=== PATIENT | female | born 1960 | race Caucasian/White ===

== ENCOUNTER 2022-02-21 22:34 | Inpatient (IN) | payer OTHER ==
[~2022-02-21] VITALS: Ht 167.6 cm; Wt 71.7 kg
[2022-02-21 22:34] VITALS: BP 100/60
--- NOTE | 2022-02-21 22:35 | NUR ---
PT BROUGHT TO BED 4 VIA [facility]
[2022-02-21] MEDS ORDERED: NACL 0.9% 1,000 ML IV ONE (22:45)
--- NOTE | 2022-02-21 22:45 | NUR ---
ER Physician at bedside assessing patient.
--- NOTE | 2022-02-21 23:00 | NUR ---
Patient verbally informed ER physician she "had dialysis 5 years ago for 6 months, and no longer receiving dialysis." ER physician verbalized understanding.
[2022-02-21 23:10] LABS: BASOPHILS # (AUTO) 0.1 K/uL (0.00-0.22); BASOPHILS % (AUTO) 0.4 % (0.0-2.0); EOSINOPHILS # (AUTO) 0.1 K/uL (0-0.4); EOSINOPHILS % (AUTO) 0.5 % (0.0-4.0); HEMATOCRIT 57.2 % (36-48); HEMOGLOBIN 19.5 g/dL (12.0-16.0); LYMPHOCYTES # (AUTO) 1.2 K/uL (2.5-16.5); LYMPHOCYTES % (AUTO) 5.5 % (20.5-51.1); MEAN CORPUSCULAR HEMOGLOBIN 31 pg (27-31); MEAN CORPUSCULAR HGB CONC 34 g/dL (33-37); MEAN CORPUSCULAR VOLUME 90.8 fL (80-94); MONOCYTES # (AUTO) 0.7 K/uL (0.8-1.0); MONOCYTES % (AUTO) 3.1 % (1.7-9.3); NEUTROPHILS # (AUTO) 19.8 K/uL (1.8-7.7); NEUTROPHILS % (AUTO) 90.5 % (42.2-75.2); PLATELET COUNT (AUTO) 387 K/uL (140-450); RED CELL DISTRIBUTION WIDTH 13.4 % (11.6-13.7); WHITE BLOOD COUNT (AUTO) 21.8 K/uL (4.8-10.8)
[2022-02-22] LABS: ALBUMIN 4.7 g/dL (3.4-5.0); ANION GAP 37.9 (8-16); ASPARTATE AMINOTRANSFERASE 61 U/L (15-37); CARBON DIOXIDE 18.7 mmol/L (21-32); CHLORIDE 72 mmol/L (98-107); GFR ARICAN-AMERICAN 6 mL/min (>90); GLUCOSE 312 mg/dL (74-106); SALICYLATE 4.3 mg/dL (2.8-20.0); SODIUM SERUM 126 mmol/L (136-145); TOTAL BILIRUBIN 3.3 mg/dL (0.0-1.0)
--- NOTE | 2022-02-22 | NUR ---
NO S/SX OF ACUTE DISTRESS NOTED Addendum: 02/22/22 at 2038 by Ann-Marie Benites RN THE ABOVE NURSE'S NOTE IS TIME ERROR ENTRY INSTEAD OF 1200 - REMILR
[2022-02-22 00:06] LABS: POTASSIUM 2.6 mmol/L (3.5-5.1); UREA NITROGEN, BLOOD 63 mg/dL (7-18)
[2022-02-22 00:07] LABS: ACETAMINOPHEN < 0.5 ug/ml (10-30); CREATININE 8.4 mg/dL (0.6-1.3)
--- NOTE | 2022-02-22 00:30 | NUR ---
Patient lying in bed, no s/s of distress, chest rise and fall symmetrical.
--- NOTE | 2022-02-22 01:00 | NUR ---
Patient lying in bed, no s/s of distress, chest rise and fall symmetrical.
[2022-02-22] MEDS ORDERED: ONDANSETRON 4 MG/2 ML VIAL IVP ONE (01:50)
[2022-02-22] MEDS ORDERED: POTASSIUM CHLORIDE 10 MEQ TABER PO ONE (01:50)
[2022-02-22] MEDS ORDERED: MORPHINE SULFATE 4 MG/ML SYR IVP ONE ×2 (01:50→04:25)
--- NOTE | 2022-02-22 02:05 | NUR ---
Patient lying in bed, no s/s of distress, chest rise and fall symmetrical.
--- NOTE | 2022-02-22 03:01 | NUR ---
Patient lying in bed, no s/s of distress, chest rise and fall symmetrical.
--- NOTE | 2022-02-22 04:12 | NUR ---
Patient lying in bed, no s/s of distress, chest rise and fall symmetrical.
--- NOTE | 2022-02-22 04:33 | NUR ---
4mg morphine package damaged, medication wasted in pixis, with nurse co-signer. Pulled another 4mg morphine from pixis.
--- NOTE | 2022-02-22 05:33 | NUR ---
Patient will be admitted to care of TELEMETRY NURSE MEGHAN PATEL. Admited to TELEMETRY. Will go to room 106A. Belongings list completed. Report to TELEMETRY NURSE MEGHAN PATEL. TELEMETRY NURSE MEGHAN PATEL verbalized understanding of report, no further questions. Patient taken to Telemetry floor, on monitor, and safely transferred to Bed 106A. Patient A/Ox4, no s/s of distress, skin intact, patient stated "pain is 2/10, tolerable."
--- NOTE | 2022-02-22 05:45 | NUR ---
PATIENT WAS BROUGHT TO MST UNIT VIA GURNEY WITH CC: ABDOMINAL PAIN. DX: ACUTE RENAL FAILURE, HYPOKALEMIA, RHABDOMYOLYSIS. AMBULATORY. ALL SAFETY MEASURES ARE IN PLACE. NO SOB NOTED. RESPIRATION EVEN UNLABORED. ON TELE MONITOR. MRSA SCREENING DONE. CALL LIGHT WITHIN REACH. WILL ENDORSE TO THE NEXT SHIFT FOR CONTINUITY OF CARE.
[2022-02-22] MEDS ORDERED: ACETAMINOPHEN 325 MG TAB PO PRN (07:50)
[2022-02-22] MEDS ORDERED: ZOLPIDEM 5 MG TAB PO PRN (07:50)
[2022-02-22] MEDS ORDERED: VANCOMYCIN PER PHARMACY MC PRN (07:50)
[2022-02-22] MEDS ORDERED: guaiFENesin DM 200/20 MG-10 ML 10 ML UDC PO PRN (07:50)
[2022-02-22] MEDS ORDERED: DOCUSATE SODIUM 100 MG GELCAP PO PRN (07:50)
[2022-02-22 08:00] VITALS: BP_SYST 108; BP_SYST 142; BP_DIAS 84; BP_DIAS 94
--- NOTE | 2022-02-22 08:20 | NUR ---
PER DR. ABRAHAM - INSERT MACEDO CATH - FOR URINE COLLECTION FOR SPECIMEN . Addendum: 02/22/22 at 2041 by Ann-Marie Benites RN ONLY LESS THAN 5 CC DRAIN URINE OUTPUT WHEN I INSERTED THE MACEDO CATH - PROCEDURE TOLERATED WELL BY THE PT . , MINI HD 5 YRS AGO
[2022-02-22 08:46] LABS: HEMATOCRIT 51.7 % (36-48); MEAN CORPUSCULAR HEMOGLOBIN 31 pg (27-31); MEAN CORPUSCULAR HGB CONC 35 g/dL (33-37); MEAN CORPUSCULAR VOLUME 88.7 fL (80-94); PLATELET COUNT (AUTO) 352 K/uL (140-450); RED BLOOD CELL COUNT(AUTO) 5.83 MIL/uL (4.20-5.40); RED CELL DISTRIBUTION WIDTH 13.3 % (11.6-13.7)
[2022-02-22 09:03] LABS: ANION GAP 31.1 (8-16); CARBON DIOXIDE 20.8 mmol/L (21-32)
[2022-02-22 09:07] LABS: BILIRUBIN,DIRECT 0.3 mg/dL (0.0-0.3)
[2022-02-22 09:09] LABS: PROTHROMBIN TIME 11.4 secs (10.8-13.4)
[2022-02-22 09:16] LABS: CREATININE 8.6 mg/dL (0.6-1.3); POTASSIUM 2.9 mmol/L (3.5-5.1)
--- NOTE | 2022-02-22 09:23 | NUR ---
PATIENT HAS BEEN SCREENED AND CATEGORIZED MODERATE NUTRITION RISK. PATIENT WILL BE SEEN WITHIN 3-5 DAYS OF ADMISSION. 02/25/22-02/27/22 REVIEWED BY NITZA MCDANIEL RD
[2022-02-22 09:25] LABS: WHITE BLOOD COUNT (AUTO) 25.4 K/uL (4.8-10.8)
[2022-02-22] MEDS ORDERED: NACL 0.9% 2,000 ML IV SCH (09:25)
[2022-02-22 09:26] LABS: EOSINOPHILS % (MANUAL) 5 % (0-4); LYMPHOCYTES % (MANUAL) 28 % (20-46); MONOCYTES % (MANUAL) 7 % (5-12)
[2022-02-22 09:27] LABS: CHOL/HDL RATIO 6.1 (1-4.5); FREE T4 (FREE THYROXINE) 1.05 ng/dL (0.76-1.46); MAGNESIUM 3.4 mg/dL (1.8-2.4); THYROID STIMULATING HORMONE 2.64 uIU/mL (0.34-3.74)
--- NOTE | 2022-02-22 09:39 | NUR ---
C/O PAIN - WILL MEDICATE.
--- NOTE | 2022-02-22 09:40 | NUR ---
during rounds , dr. kruse aware pt's latest potassium is low - he agree to give k dur now .
[2022-02-22 09:51] LABS: PHOSPHORUS 15.4 mg/dL (2.5-4.9)
[2022-02-22] MEDS: HYDROcodone/APAP 7.5/325 MG 1 TAB PO PRN ×2 (09:52→14:19)
[2022-02-22] MEDS: PANTOPRAZOLE 40 MG TABEC PO SCH (09:52)
[2022-02-22] MEDS: POTASSIUM CHLORIDE 10 MEQ TABER PO PRN (10:31)
--- NOTE | 2022-02-22 11:08 | NUR ---
DC PLANNING NIURKA ATTEMPTED TO MEET WITH PATIENT AT BEDSIDE TO COMPLETE ASSESSMENT, HOWEVER PATIENT DECLINED TO PARTICIPATE , SHE IS IN TOO MUCH PAIN. SW TO FOLLOW UP 02/23 Addendum: 02/24/22 at 0826 by Jacqueline Hernández LATE ENTRY- ATTEMPT MADE AT 1:55PM ON 02/23 NIURKA SECOND ATTEMPT TO MEET WITH PATIENT AT BEDSIDE TO COMPLETE ASSESSMENT, HOWEVER, PATIENT CONTINUES TO COMPLAIN OF PAIN AND DECLINES TO PARTICIPATE IN ASSESSMENT. SW WILL CONTINUE TO ATTEMPT TO MEET WITH PATIENT. Addendum: 02/24/22 at 1359 by Jacqueline Hernández SW MET WITH PATIENT AT BEDSIDE TO COMPLETE ASSESSMENT. PATIENT REPORTS RESIDING WITH A ROOMMATE AT THE ADDRESS LISTED ON FILE FOR THE LAST 14 YRS. PATIENT IDENTIFIED EMERGENCY CONTACT BRITNEY CHARLES (ROOMMATE) [phone]. PATIENT DENIES MEETING WITH PCP CONSISTENTLY; LAST VISIT REPORTED TO THREE YEARS AGO. PATIENT DENIES CURRENTLY TAKING MEDICATION AND DENIES BARRIERS IN ACCESSING NEEDED MEDICATIONS. PATIENT REPORTS PICKING UP RX FROM [facility] [address] IN [place], WHEN NEEDED. PATIENT REPORTS BEING INDEPENDENT AND DENIES USE OF DME . PATIENT REPORTS IHHS HOURS AND REPORTS HER SON IHSS CAREGIVER, HOWEVER REPORTS SHE HAS NOT SEEN HER SON IN THREE YEARS, PATIENT REQUESTING IHSS RESOURCES. PATIENT REPORTS RECEIVING DIALYSIS 5-6 YRS AGO FOR 2-3 MONTHS, PT UNABLE TO RECALL NAME OF DIALYSIS CENTER. PT DENIES CURRENTLY RECIEVING DIALYSIS TX. JAM REPORTS INCOME SOURCE SSDI. PT DENIES MENTAL HEALTH HX. PATIENT REPORTS SUBSTANCE USE HX, PRIMARILY METH. PATIENT REPORTS BEING SOBER FOR 5-6 MONTHS DESPITE TESTING POSITIVE FOR OPIATES, COCAINE AND CANNABIS AT ADMISSIONS. SW PROVIDED PATIENT WITH PSYCHOEDUCATION ON SHELTER MONITOR SUBSTANCE USE.PATIENT RECEPTIVE AND ACCEPTED SUBSTANCE USE RESOURCES. SW INQUIRED ON ADDITIONAL RESOURCES NEEDED, PATIENT REQUESTING IHSS RESOURCES AND HOMELESS RESOURCES SHE REPORTS NOT WANTING TO RETURN TO HOME. SW ENCOURAGED PATIENT TO BEGIN CALLING HOMELESS RESIDENTIAL OFTEN HAVE ASSESSMENTS THAT MUST BE COMPLETED. PATIENT IN UNDERSTANDING. Addendum: 02/25/22 at 1152 by Jacqueline Hernández SW PROVIDED PATIENT WITH IHSS, HOMELESS, EMERGENCY ASSISTANCE, LOW COST HOUSING, MENTAL HEALTH, SUBSTANCE USE AND LOW COST HOUSING RESOURCES. PATIENT ACCEPTED. PATIENT REQUESTING SW TO CALL CODE ENFORCEMENT HOUSING IS REPORTED TO BE UNINHABITABLE. SW ENCOURAGED PATIENT TO UTILIZE HOMELESS RESOURCES TO IDENTIFY A RESIDENTIAL AND COMPLETE PHONE INTERVIEWS AND ADDITIONAL REQUIREMENTS NEEDED. NIURKA OUTREACHED TO [place] [facility]IANCE AT [phone] FOR CONSULTATION. NIURKA LEFT MESSAGE REQUESTING A RETURN PHONE CALL. NIURKA PROVIDED PATIENT WITH CODE COMPLIANCE PHONE NUMBER AND ENCOURAGED PATIENT TO CALL TO FILE COMPLAINT. Addendum: 02/25/22 at 1339 by Jacqueline VAZQUEZ MET WITH PATIENT AT BEDSIDE. PATIENT MADE AWARE OF DC ORDERS. PATIENT REFUSING TO RETURN HOME AND IS REFUSING TO MAKE ARRANGEMENTS FOR ALTERNATIVE HOUSING. PATIENT REQUESTED SW CALL EMERGENCY CONTACT, BRITNEY CHARLES FOR PATIENTS DAUGHTERS PHONE NUMBER. NIURKA ATTEMPTED TO CONTACT EMERGENCY CONTACT, HOWEVER, UNSUCCESSFUL. LEFT MESSAGE REQUESTING A RETURN PHONE CALL.
[2022-02-22 12:00] VITALS: BP 102/80
[2022-02-22] MEDS ORDERED: VANCOMYCIN 1,000 MG in DEXTROSE 5% 250 ML IV SCH (13:30)
--- NOTE | 2022-02-22 14:15 | NUR ---
BP 122/75 , C/O PAIN WILL MEDICATE.
[2022-02-22] MEDS: NACL 0.9% 1,000 ML IV SCH ×3 (14:20→20:20)
[2022-02-22] MEDS: PIPERACILLIN/TAZOBACTAM 2.25 GM in DEXTROSE 5% 50 ML IV SCH ×3 (14:40→23:02)
[2022-02-22 16:00] VITALS: BP 130/88
[2022-02-22] MEDS ORDERED: POTASSIUM CHLORIDE 10 MEQ TABER PO SCH (16:00)
[2022-02-22] MEDS: LACTULOSE 20 GM/30 ML UDC PO SCH (17:01)
--- NOTE | 2022-02-22 18:01 | NUR ---
P.T. NOTES P.T. EVAL INITIATED; REFER TO EVAL FOR DETAILS.
--- NOTE | 2022-02-22 19:20 | NUR ---
HAS BM - NORMAL CONSISTENTCY
--- NOTE | 2022-02-22 19:35 | NUR ---
ENDORSED - PT - STABLE - I ENDORSED TO JORGE CHRISTIANSON - SHE HAVE TO FF UP DR. LEIGH GARY ORDERS REGARDING PT IS STILL NO URINE OUTPUT FROM 2 DAYS TILL NOW - JORGE CHRISTIANSON VERBALIZES UNDERSTANDING
--- NOTE | 2022-02-22 19:36 | NUR ---
RECEIVED REPORT FROM DAY SHIFT NURSE PHYLLIS. PATIENT AAOX4 ON ROOM AIR. NO SOB NOTED. BREATHING NORMAL NON LABORED. IVF NS INFUSING AT 120 MLS/HR ON THE LAC 20 GAUGE. MACEDO CATHETER IN PLACE WITH SCANTY URINE IN THE TUBING. NO COMPLAINTS OF PAIN AT THIS TIME. SAFETY MEASURES IN PLACE. CALL LIGHT WITHIN REACH.
[2022-02-22 20:00] VITALS: BP 112/61
--- NOTE | 2022-02-22 20:18 | NUR ---
NOTIFIED DR. ABRAHAM D/T PATIENT NO URINE OUTPUT WITH ORDERS NOTED, CARRIED OUT. IVF RATE DECREASED TO 70 MLS/HR. CONSULT WITH DR. MCALLISTER. PT. IS RESTING COMFORTABLY IN BED.
[2022-02-22] MEDS: SENNA 8.6 MG TAB PO SCH (23:02)
--- NOTE | 2022-02-22 23:10 | NUR ---
PATIENT WAS ABLE TO URINATE. FOUND UNDER PADS WET MODERATE IN AMOUNT. NO COMPLAINTS OF PAIN. CALL LIGHT WITHIN REACH.
[2022-02-23] VITALS: BP 115/63
[2022-02-23 04:00] VITALS: BP 110/60
--- NOTE | 2022-02-23 04:20 | NUR ---
PATIENT SLEEPING WITH SYMMETRICAL RISE AND FALL OF THE CHEST. SAFETY MEASURES IN PLACE. CALL LIGHT WITHIN REACH.
[2022-02-23] MEDS: PIPERACILLIN/TAZOBACTAM 2.25 GM in DEXTROSE 5% 50 ML IV SCH ×3 (04:26→21:29)
[2022-02-23 06:15] LABS: APPEARANCE,URINE CLOUDY (CLEAR); BILIRUBIN,URINE NEGATIVE (NEGATIVE); BLOOD, URINE 3+ (NEGATIVE); COLOR,URINE DARK YELLOW (YELLOW); LEUKOCYTE ESTERASE ,URINE TRACE (NEGATIVE); NITRITE, URINE NEGATIVE (NEGATIVE); PH,URINE 5.5 (5.0-9.0); UGLUCOSE NEGATIVE (NEGATIVE)
[2022-02-23 06:56] LABS: RBC,URINE 20-50 /HPF (0-5)
[2022-02-23 06:58] LABS: BARBITURATE, URINE NEGATIVE ng/ml (NEG <=200); BENZODIAZEPINE, URINE NEGATIVE ng/mL (NEG <=200); CANNABINOID, URINE POSITIVE ng/mL (NEG <=50)
[2022-02-23 06:59] LABS: COCAINE, URINE NEGATIVE ng/mL (NEG <=300); OPIATE, URINE POSITIVE ng/mL (NEG <=2000); PHENCYCLIDINE SCREEN,URINE NEGATIVE ng/mL (NEG <=25)
--- NOTE | 2022-02-23 07:28 | NUR ---
PATIENT STABLE. ENDORSED TO DAY SHIFT NURSE FOR CONTINUITY OF CARE.
--- NOTE | 2022-02-23 07:30 | NUR ---
RECEIVED REPORT FROM NIGHTSHIFT NURSE. PT A/O X3. ABLE TO MAKE NEEDS KNOWN. NO SOB OR RESPIRATORY DISTRESS. RR EVEN & UNLABORED. ON RA. AFEBRILE. PT DENIES PAIN. CARDIAC DIET. ON TELE, SR. NS @ 70 ML/HR ON LAC #20. MACEDO VIA GRAVITY. NEEDS ALL MET. ALL SAFETY MEASURES IN PLACE.
[2022-02-23 07:54] LABS: HEMATOCRIT 41.3 % (36-48); HEMOGLOBIN 14.4 g/dL (12.0-16.0); LYMPHOCYTES # (AUTO) 0.6 K/uL (2.5-16.5); MEAN CORPUSCULAR HEMOGLOBIN 31 pg (27-31); MEAN CORPUSCULAR HGB CONC 35 g/dL (33-37); MEAN CORPUSCULAR VOLUME 89.2 fL (80-94); MONOCYTES # (AUTO) 1.2 K/uL (0.8-1.0); MONOCYTES % (AUTO) 6.5 % (1.7-9.3); NEUTROPHILS # (AUTO) 17.3 K/uL (1.8-7.7); NEUTROPHILS % (AUTO) 90.5 % (42.2-75.2); PLATELET COUNT (AUTO) 205 K/uL (140-450); RED BLOOD CELL COUNT(AUTO) 4.63 MIL/uL (4.20-5.40); RED CELL DISTRIBUTION WIDTH 13.3 % (11.6-13.7); WHITE BLOOD COUNT (AUTO) 19.1 K/uL (4.8-10.8)
[2022-02-23 08:00] VITALS: BP 128/83
[2022-02-23 08:25] LABS: ALBUMIN 2.8 g/dL (3.4-5.0); ANION GAP 22.1 (8-16); CARBON DIOXIDE 20.3 mmol/L (21-32); POTASSIUM 4.4 mmol/L (3.5-5.1); TOTAL BILIRUBIN 1.7 mg/dL (0.0-1.0)
[2022-02-23 08:31] LABS: CREATININE 6.7 mg/dL (0.6-1.3)
[2022-02-23] MEDS: PANTOPRAZOLE 40 MG TABEC PO SCH (09:27)
[2022-02-23] MEDS: LACTULOSE 20 GM/30 ML UDC PO SCH ×3 (09:27→16:35)
[2022-02-23] MEDS: SENNA 8.6 MG TAB PO SCH ×2 (09:27→21:29)
[2022-02-23] MEDS: NACL 0.9% 1,000 ML IV SCH ×2 (09:29→14:29)
--- NOTE | 2022-02-23 11:30 | NUR ---
WHEN ASKED IF FAMILY MEMBERS CALL COULD UPDATE BE GIVEN AND PT STATES, "YES", HOWEVER STATES, "BUT I DON'T WANT TO TALK TO THEM". PT'S NEIGHBOR CALLED AND NO INFORMATION WAS GIVEN REGARDING THE PT. VERBALIZED TO PT AND PT STATES, "OKAY GOOD".
[2022-02-23 12:00] VITALS: BP 142/87
--- NOTE | 2022-02-23 13:26 | NUR ---
PT REFUSED SCHEDULED LACTULOSE MEDICATION. MEDICATION EDUCATION PROVIDED, HOWEVER, PT STILL REFUSES. NEEDS ALL MET. ENCOURAGE PT TO USE CALL LIGHT FOR ASSISTANCE. ALL SAFETY MEASURES IN PLACE.
[2022-02-23 16:00] VITALS: BP 118/78
--- NOTE | 2022-02-23 16:52 | NUR ---
P.T. NOTES D/C FROM P.T. AFTER TX, ENDORSED TO NURSING; REFER TO DC SUMMARY FOR DETAILS.
[2022-02-23] MEDS: ONDANSETRON 4 MG/2 ML VIAL IM/IVP PRN (17:03)
--- NOTE | 2022-02-23 17:10 | NUR ---
PT C/O NAUSEA. PRN ZOFRAN GIVEN. ORAL FLUIDS PROVIDED. NO SOB NOTED. ON RA. IVF INFUSING. 350 ML URINE OUTPUT VIA MACEDO. NEEDS ALL MET. ALL SAFETY MEASURES IN PLACE.
--- NOTE | 2022-02-23 17:30 | NUR ---
PT MOANING AND STATES, ABDOMINAL "CRAMPING" 03/28. ASSISTED PT TO TOILET. PT WITH LARGE BM. PT REQUESTING PAIN MEDICATION. SEE EMAR FOR PRN MORPHINE ADMINISTRATION. EXPLAINED TO USE THE BATHROOM CALL LIGHT FOR ASSISTANCE AFTER SHE IS DONE.
[2022-02-23] MEDS: MORPHINE SULFATE 2 MG/ML SYR IVP PRN (17:38)
--- NOTE | 2022-02-23 17:40 | NUR ---
ASSISTED PT BACK TO BED. GOWN AND LINENS CHANGED BY SALES ACCOUNT EXECUTIVE. ENCOURAGE USE OF CALL LIGHT FOR ASSISTANCE. ALL NEEDS MET. ALL SAFETY MEASURES IN PLACE.
--- NOTE | 2022-02-23 18:29 | NUR ---
PT ASLEEP. CHEST RISING AND FALLING. NS @ 125 ML/HR. MACEDO VIA GRAVITY. NEEDS ALL MET. ALL SAFETY MEASURES IN PLACE.
[2022-02-23 18:41] LABS: CHLORIDE,URINE RANDOM 40 mmol/L (110-250); CREATININE,URINE RANDOM 100 mg/dL (30-125); URINE SODIUM, RANDOM 41 mmol/l (40-220)
--- NOTE | 2022-02-23 19:23 | NUR ---
REPORT GIVEN TO NIGHTSHIFT NURSEISMA FOR CONTINUITY OF CARE.
[2022-02-23 20:00] VITALS: BP 133/72
[2022-02-24] VITALS: BP 130/70
[2022-02-24] MEDS: NACL 0.9% 1,000 ML IV SCH ×4 (00:35→23:25)
[2022-02-24] MEDS: ONDANSETRON 4 MG/2 ML VIAL IM/IVP PRN ×3 (00:36→13:33)
[2022-02-24] MEDS: MORPHINE SULFATE 2 MG/ML SYR IVP PRN ×3 (00:38→23:27)
--- NOTE | 2022-02-24 01:40 | NUR ---
PATIENT AWAKE CRYING C/O OF STOMACH PAIN WANTS MORPHINE BUT NOT TIME DUE AT 0030 MEDICATED AT 0035 AND HUNG NS AT 125 HOUR. PATIENT WITH NO SIGNS OF ACUTE DISTRESS.
[2022-02-24 04:00] VITALS: BP 128/69
[2022-02-24] MEDS: PIPERACILLIN/TAZOBACTAM 2.25 GM in DEXTROSE 5% 50 ML IV SCH ×3 (05:00→21:00)
[2022-02-24 07:16] LABS: BASOPHILS % (AUTO) 0.3 % (0.0-2.0); EOSINOPHILS # (AUTO) 0.1 K/uL (0-0.4); EOSINOPHILS % (AUTO) 0.4 % (0.0-4.0); HEMATOCRIT 35.1 % (36-48); HEMOGLOBIN 11.9 g/dL (12.0-16.0); LYMPHOCYTES # (AUTO) 0.7 K/uL (2.5-16.5); LYMPHOCYTES % (AUTO) 5.5 % (20.5-51.1); MEAN CORPUSCULAR HEMOGLOBIN 31 pg (27-31); MEAN CORPUSCULAR HGB CONC 34 g/dL (33-37); MEAN CORPUSCULAR VOLUME 90.9 fL (80-94); MONOCYTES # (AUTO) 0.9 K/uL (0.8-1.0); MONOCYTES % (AUTO) 7.1 % (1.7-9.3); NEUTROPHILS # (AUTO) 11.2 K/uL (1.8-7.7); NEUTROPHILS % (AUTO) 86.7 % (42.2-75.2); PLATELET COUNT (AUTO) 164 K/uL (140-450); RED BLOOD CELL COUNT(AUTO) 3.86 MIL/uL (4.20-5.40); RED CELL DISTRIBUTION WIDTH 13.1 % (11.6-13.7); WHITE BLOOD COUNT (AUTO) 12.9 K/uL (4.8-10.8)
--- NOTE | 2022-02-24 07:30 | NUR ---
RECEIVED REPORT FROM NIGHTSHIFT NURSE. PT A/O X3. NO SOB OR RESPIRATORY DISTRESS. ON RA. NS @ 125 ML/HR. ON CARDIAC DIET. MACEDO VIA GRAVITY. ALL SAFETY MEASURES IN PLACE.
[2022-02-24 07:52] LABS: ALBUMIN 2.3 g/dL (3.4-5.0); ANION GAP 15.8 (8-16); CARBON DIOXIDE 21.8 mmol/L (21-32); CREATININE 3.4 mg/dL (0.6-1.3); POTASSIUM 3.6 mmol/L (3.5-5.1); TOTAL BILIRUBIN 1.1 mg/dL (0.0-1.0)
[2022-02-24 08:00] VITALS: BP 137/80
[2022-02-24] MEDS: PANTOPRAZOLE 40 MG TABEC PO SCH (08:41)
[2022-02-24] MEDS: LACTULOSE 20 GM/30 ML UDC PO SCH ×3 (08:53→16:21)
[2022-02-24] MEDS: SENNA 8.6 MG TAB PO SCH ×2 (08:53→21:00)
[2022-02-24] MEDS ORDERED: VANCOMYCIN 500 MG in DEXTROSE 5% 100 ML IV SCH (11:00)
[2022-02-24 12:00] VITALS: BP 134/77
--- NOTE | 2022-02-24 12:00 | NUR ---
PT ASLEEP. CHEST RISING AND FALLING. IN NO DISTRESS. IVF INFUSING. NEEDS ALL MET. ALL SAFETY MEASURES IN PLACE.
[2022-02-24] MEDS ORDERED: DICYCLOMINE 10 MG CAP PO SCH (13:40)
[2022-02-24 16:00] VITALS: BP 137/78
[2022-02-24] MEDS: HYDROcodone/APAP 7.5/325 MG 1 TAB PO PRN (17:09)
--- NOTE | 2022-02-24 17:12 | NUR ---
PRN PAIN MED GIVEN. PT C/O "SHARP" HEADACHE "11/26" NON-RADIATING. ALERT AND ORIENTED. NO SOB OR RESPIRATORY DISTRESS. ON RA. AMBULATED TO AND FROM BEDSIDE COMMODE WITH STEADY GAIT. NEEDS ALL MET. ALL SAFETY MEASURES IN PLACE.
--- NOTE | 2022-02-24 18:21 | NUR ---
PT RESTING WITH EYES CLOSED. CHEST RISING AND FALLING. IN NO DISTRESS. ALL NEEDS MET. ALL SAFETY MEASURES IN PLACE.
--- NOTE | 2022-02-24 19:31 | NUR ---
REPORT GIVEN TO ELECTRICIAN SOUND NURSEISMA FOR CONTINUITY OF CARE. PT STABLE.
[2022-02-24 20:00] VITALS: BP 138/78
[2022-02-25] VITALS: BP 134/76
--- NOTE | 2022-02-25 02:21 | NUR ---
PATIENT CRYING C/O OF PAIN IN STOMACH IV SITE DONT LOOK GOOD START NEW SITE IN LEFT HAND 20GA. PATIENT GIVEN MORPHINE 2MG IVP 2330. HUNG IVF NS AT 125 HOUR 2324. PATIENT SINUS ON MONITOR. TEMP 98.7. PATIENT HAS A F/C DRAINING RIZWAN URINE. NO OTHER C/O PATIENT ON ROOM AIR. SAT 98%.
[2022-02-25 04:00] VITALS: BP 130/74
[2022-02-25] MEDS: PIPERACILLIN/TAZOBACTAM 2.25 GM in DEXTROSE 5% 50 ML IV SCH ×2 (05:00→13:14)
[2022-02-25 07:08] LABS: BASOPHILS % (AUTO) 0.1 % (0.0-2.0); EOSINOPHILS % (AUTO) 0.5 % (0.0-4.0); HEMATOCRIT 33.1 % (36-48); HEMOGLOBIN 11.4 g/dL (12.0-16.0); LYMPHOCYTES % (AUTO) 9.2 % (20.5-51.1); MEAN CORPUSCULAR HEMOGLOBIN 31 pg (27-31); MEAN CORPUSCULAR HGB CONC 34 g/dL (33-37); MEAN CORPUSCULAR VOLUME 91.2 fL (80-94); MONOCYTES # (AUTO) 0.9 K/uL (0.8-1.0); NEUTROPHILS # (AUTO) 8.5 K/uL (1.8-7.7); NEUTROPHILS % (AUTO) 81.2 % (42.2-75.2); PLATELET COUNT (AUTO) 202 K/uL (140-450); RED BLOOD CELL COUNT(AUTO) 3.63 MIL/uL (4.20-5.40); RED CELL DISTRIBUTION WIDTH 13.5 % (11.6-13.7); WHITE BLOOD COUNT (AUTO) 10.5 K/uL (4.8-10.8)
[2022-02-25 07:25] LABS: ALBUMIN 2.2 g/dL (3.4-5.0); ANION GAP 12.6 (8-16); CARBON DIOXIDE 23.7 mmol/L (21-32); CREATININE 1.7 mg/dL (0.6-1.3); POTASSIUM 3.3 mmol/L (3.5-5.1); TOTAL BILIRUBIN 0.9 mg/dL (0.0-1.0)
--- NOTE | 2022-02-25 07:30 | NUR ---
RECEIVED REPORT FROM PUBLIC SCHOOL TEACHER NURSE FOR CONTINUITY OF CARE. PT AWAKE IN BED. A&O4, ABLE TO COMMUNICATE NEEDS. RESPIRATIONS EVEN AND LABORED ON RA. NO DISTRESS NOTED. PT ON WELDING MACHINE SETTER. MACEDO CATHETER IN PLACE, INTACT. IV SITE ON LEFT HAND, 20G INFUSING NS AT 125ML/HR. IV SITE ON LEFT AC, INFILTRATED. REMOVED LAC IV CATHETER INTACT. CALL LIGHT WITHIN REACH. SAFETY PRECAUTIONS IN PLACE. WILL CONTINUE TO MONITOR.
[2022-02-25 08:00] VITALS: BP 127/70
--- NOTE | 2022-02-25 08:00 | NUR ---
Patient's Plan of Care was discussed and reviewed with FRENCH POLISHER:
[2022-02-25] MEDS: NACL 0.9% 1,000 ML IV SCH (09:07)
[2022-02-25] MEDS: SENNA 8.6 MG TAB PO SCH (09:08)
[2022-02-25] MEDS: PANTOPRAZOLE 40 MG TABEC PO SCH (09:08)
[2022-02-25] MEDS: POTASSIUM CHLORIDE 10 MEQ TABER PO PRN (09:08)
[2022-02-25] MEDS: LACTULOSE 20 GM/30 ML UDC PO SCH ×2 (09:09→13:00)
[2022-02-25] MEDS: HYDROcodone/APAP 7.5/325 MG 1 TAB PO PRN (09:24)
--- NOTE | 2022-02-25 09:39 | NUR ---
ADMINISTERED SCHEDULED MORNING MEDS. PT TEACHING ABOUT MEDS GIVEN. PT VERBALIZED UNDERSTANDING. PT COMPLAINED OF ABD PAIN 11/26. PRN PAIN MED ADMINISTERED. CALL LIGHT WITHIN REACH. SAFETY PRECAUTIONS IN PLACE. WILL CONTINUE TO MONITOR.
[2022-02-25] MEDS ORDERED: AMOX-999 PO (10:26)
[2022-02-25] MEDS ORDERED: VANCOMYCIN 1,000 MG in DEXTROSE 5% 250 ML IV SCH (11:00)
--- NOTE | 2022-02-25 11:15 | NUR ---
DID ROUNDS. PT IN BED, SLEEPING. NO DISTRESS NOTED. RESPIRATIONS EVEN AND UNLABORED. SAFETY PRECAUTIONS IN PLACE. WILL CONTINUE TO MONITOR.
--- NOTE | 2022-02-25 13:22 | NUR ---
PT REFUSED TO TAKE LACTULOSE. PT STATED SHE DOESN'T LIKE IT. INFORMED PT ABOUT HER DC ORDER. PT STATED SHE CAN'T GO BACK TO HER HOME BECAUSE IT'S DIRTY AND IT'S NOT HABITABLE. CALLED SW. ASKED SW WHAT HELP WE CAN GIVE HER. PER SW, SHE ALREADY SEEN THE PT AND GAVE RESOURCES FOR THE PT TO CALL BEC WE CAN'T SET IT UP FOR HER. SW NOW AT BEDSIDE HELPING PT CALL RESOURCES. PT SCREAMING AND CRYING, HAVING A HARD TIME TO COOPERATE.
--- NOTE | 2022-02-25 13:27 | NUR ---
IV ABX ADMINISTERED BY JORGE CARRASCO. NO ADVERSE REACTION NOTED. WILL CONTINUE TO MONITOR.
[2022-02-25 13:54] VITALS: BP 127/70
[2022-02-25] MEDS ORDERED: PANT40EC PO (14:13)
[2022-02-25] MEDS ORDERED: ONDA4SOL8 PO (14:13)
--- NOTE | 2022-02-25 14:48 | NUR ---
DC PAPERS DISCUSSED WITH THE PT. PT REFUSED TO SIGN. PT STATED "SHE DOESN'T CARE. I JUST WANT TO LEAVE NOW." REMOVED IV CATHETER INTACT. REMOVED MACEDO CATHETER INTACT. REMOVED ID WRIST BAND. CALLED SECURITY FOR CLOTHES. PT GETTING DRESSED UP. AWAITING FOR PT'S UBER RIDE. PT IS STABLE.
--- NOTE | 2022-02-25 15:03 | NUR ---
PT DC HOME. [facility] PT RIDE AN UBER. PT ABLE TO AMBULATE AND TRANSFER. ALL BELONGINGS TAKEN UPON DC. PT IS STABLE.
== END 2022-02-25 15:00 | disposition home or self-care (01) | DRG 871 ==
LOC: MED 22:34 → MTU 02-22 03:49
PROVIDERS: ADMIT Student in an Organized Health Care Education/Training Program; ATTEND Student in an Organized Health Care Education/Training Program
DX: A41.9 Sepsis, unspecified organism (principal); N17.0 Acute kidney failure with tubular necrosis; M62.82 Rhabdomyolysis; E87.2 Acidosis; E87.1 Hypo-osmolality and hyponatremia; N39.0 Urinary tract infection, site not specified; R65.20 Severe sepsis without septic shock; F12.90 Cannabis use, unspecified, uncomplicated; F15.90 Other stimulant use, unspecified, uncomplicated; E03.9 Hypothyroidism, unspecified; E78.5 Hyperlipidemia, unspecified; E87.6 Hypokalemia; E80.6 Other disorders of bilirubin metabolism; E86.1 Hypovolemia; K44.9 Diaphragmatic hernia without obstruction or gangrene; I12.9 Hypertensive chronic kidney disease with stage 1 through stage 4 chronic kidney disease, or unspecified chronic kidney disease; N18.9 Chronic kidney disease, unspecified; Z20.822 Contact with and (suspected) exposure to COVID-19; D75.1 Secondary polycythemia; D75.839 Thrombocytosis, unspecified; G89.29 Other chronic pain; Z98.891 History of uterine scar from previous surgery; Z91.19 Patient's noncompliance with other medical treatment and regimen; Z76.5 Malingerer [conscious simulation]; K52.9 Noninfective gastroenteritis and colitis, unspecified
CPT/HCPCS: 36415; 71045; 74018; 76770; 80048; 80053; 80076; 80202; 80305; 81001; 82140; 82150; 82436; 82550; 82553; 82570; 83036; 83605; 83690; 83735; 83880; 84100; 84300; 84439; 84443; 85025; 85610; 85730; 87040; 87081; 87086; 93005; 96361; 96374; 96375; 97112; 97116; 97530; 99291; G0480; G0482; J2270; J2405; J2543; J3370; J7060; Q0092